=== PATIENT | female | born 1940 | race African-American/Black ===

== ENCOUNTER → 2022-08-25 | Emergency (ER) | payer OTHER ==
[~2022-08-25] VITALS: Ht 162.6 cm; Wt 73.0 kg
[~2022-08-25] MED LIST: HYDROCHLOROTHIAZIDE; LEVOTHYROXINE
[2022-08-25 22:32] LABS: EOSINOPHILS % 5.4 % (0.0-5.0); HEMATOCRIT. 32.7 % (36.0-48.0); HEMOGLOBIN. 10.7 g/dL (12.0-16.0); LYMPHOCYTES % 24.7 % (20.0-50.0); MEAN CORPUSCULAR VOLUME 79.5 fL (81.0-99.0); MEAN PLATELET VOLUME 9.4 fl (7.4-10.4); MONOCYTES % 9.5 % (2.0-8.0); NEUTROPHILS % 59.4 % (40.0-76.0); PLATELET 225 x1000/uL (130-400); RED BLOOD CELL COUNT 4.11 mill/uL (4.2-5.4); RED CELL DISTRIBUTION WIDTH 16.6 % (11.6-14.6)
[2022-08-25 22:33] LABS: CHLORIDE 106 mEq/L (98-107)
[2022-08-26 02:57] VITALS: BP 126/59
== END | disposition short-term general hospital (02) ==
LOC: ER 18:24
DX: R07.89 Other chest pain (principal); I10 Essential (primary) hypertension; Z20.822 Contact with and (suspected) exposure to COVID-19; R94.31 Abnormal electrocardiogram [ECG] [EKG]; E11.9 Type 2 diabetes mellitus without complications; M19.012 Primary osteoarthritis, left shoulder
CPT/HCPCS: 36415; 71045; 80053; 83880; 84484; 85025; 87426; 93005; 99291; C9803

== ENCOUNTER 2025-05-21 07:57 | Emergency (ER) | payer OTHER ==
[~2025-05-21] VITALS: Ht 170.2 cm; Wt 79.0 kg
[2025-05-21 07:58] VITALS: O2SAT 99
[2025-05-21] MEDS: ACETAMINOPHEN 325MG TABLET PO ONE (08:41)
[2025-05-21] MEDS: ONDANSETRON HCL 4MG/2ML INJ IV ONE (08:41)
[2025-05-21 08:49] LABS: BASOPHILS % 1.0 % (0.0-2.0); EOSINOPHILS % 4.1 % (0.0-5.0); HEMATOCRIT. 35.5 % (36.0-48.0); HEMOGLOBIN. 11.7 g/dL (12.0-16.0); LYMPHOCYTES % 27.6 % (20.0-50.0); MEAN PLATELET VOLUME 9.5 fl (7.4-10.4); MONOCYTES % 9.7 % (2.0-8.0); NEUTROPHILS % 57.6 % (40.0-76.0); PLATELET 253 x1000/uL (130-400); RED BLOOD CELL COUNT 4.49 mill/uL (4.2-5.4); RED CELL DISTRIBUTION WIDTH 17.1 % (11.6-14.6)
[2025-05-21 08:57] LABS: CREATININE 0.8 mg/dL (0.6-1.0); UREA NITROGEN BLOOD 10 mg/dL (9-23)
[2025-05-21 08:59] LABS: ASPARTATE AMINOTRANSFERASE 26 IU/L (<34); BILIRUBIN DIRECT 0.1 mg/dL (<=3.0); BILIRUBIN TOTAL 0.4 mg/dL (0.1-1.0); PROTEIN TOTAL 7.6 g/dL (6.0-8.3)
[2025-05-21] MEDS: IBUPROFEN 600MG TABLET PO ONE (09:21)
[2025-05-21] MEDS: METRONIDAZOLE 500 MG PREMIX 100 ML IV ONE (09:47)
[2025-05-21] MEDS ORDERED: ONDANSETRON HCL 4MG/2ML INJ IV PRN (10:30)
[2025-05-21] MEDS ORDERED: MAGNESIUM/ALUMINUM HYDROXIDE/SIMETHICONE 30ML UDC PO PRN (10:30)
[2025-05-21] MEDS ORDERED: IPRATROPIUM/ALBUTEROL 0.5-3(2.5)MG/3ML NEB HHN PRN (10:30)
[2025-05-21] MEDS ORDERED: CLONIDINE 0.1MG TABLET PO PRN (10:30)
[2025-05-21] MEDS ORDERED: GUAIFENESIN 200MG/10ML SUGAR FREE UDC PO PRN (10:30)
[2025-05-21] MEDS ORDERED: ACETAMINOPHEN 325MG TABLET PO PRN ×2 (10:30)
[2025-05-21] MEDS: LEVOFLOXACIN 750MG PREMIX 150 ML IV ONE (10:42)
[2025-05-21] MEDS ORDERED: SENNOSIDES 8.6MG TABLET PO PRN (10:45)
[2025-05-21] MEDS ORDERED: DEXTROSE 50% WATER 50ML SYRINGE IV PRN (11:15)
[2025-05-21 11:45] LABS: PHOSPHORUS 2.5 mg/dL (2.5-4.9)
[2025-05-21 12:00] VITALS: BP 143/67; PULSE 63; RESP 16; TEMP 36.9; O2SAT 95
[2025-05-21 12:53] LABS: T4 FREE 1.82 ng/dL (0.89-1.76)
[2025-05-21] MEDS ORDERED: BLOOD SUGAR DIAGNOSTIC STRIP TEST SCH (13:00)
[2025-05-21] MEDS ORDERED: INSULIN LISPRO 100 UNITS/ML SUBCUT SCH (13:20)
[2025-05-22] MEDS ORDERED: POLYETHYLENE GLYCOL 3350 (17GM) 1 DOSE PACK PO SCH (09:00)
== END 2025-05-21 12:01 | disposition left against medical advice (07) ==
LOC: ER 07:57 → CANBEDREQ 09:44 → ER 12:01
DX: E11.9 Type 2 diabetes mellitus without complications (principal); K57.30 Diverticulosis of large intestine without perforation or abscess without bleeding; I10 Essential (primary) hypertension; E03.9 Hypothyroidism, unspecified; Z88.5 Allergy status to narcotic agent; Z90.49 Acquired absence of other specified parts of digestive tract; Z90.710 Acquired absence of both cervix and uterus
CPT/HCPCS: 99285; 74176; 96365; 96367; 80076; 80048; 83036; 84439; 83605; 83690; 83735; 84100; 84443; 85025; 87040; 36415; 84145; 93005; J3490; J2405; J1956